=== PATIENT | female | born 1970 | race Caucasian/White ===

== ENCOUNTER 2024-07-17 20:37 | Emergency (ER) | payer OTHER, SELFPAY ==
[2024-07-17 20:40] VITALS: BP 168/94
[2024-07-17 20:56] LABS: Urine Albumin Trace (Neg - Trace); Urine Bilirubin Negative (Negative); Urine Character Clear (Clear); Urine Color Straw; Urine Glucose Negative (Negative); Urine Ketone Negative (Negative); Urine Leukocyte 2+ (Negative); Urine Nitrite Negative (Negative); Urine Occult Blood 4+ (Negative); Urine Specific Gravity 1.005 (<1.030); Urine Urobilinogen Negative (Neg - 1+); Urine pH 6.5 (5.0-9.0)
[2024-07-17 21:11] LABS: Urine Bacteria Few (Negative); Urine White Cell >100 /HPF (0-5)
[2024-07-17 23:30] VITALS: BP 134/79
--- NOTE | 2024-07-17 23:58 | ED.GENMED ---
History of Present Illness
General
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
Source: patient
Exam Limitations: none
Time Seen by Provider: 07/17/24 23:47
Nursing documentation reviewed up to this point in time: agreed with
History of Present Illness
History of Present Illness:
This is a 53-year-old woman with history of hypertension, prescribed lisinopril but has not been taking this and instead has been watching her diet and states blood pressure monitoring at home has been relatively at goal systolic 120s to 130s.
Other than this she takes no other medications on a daily basis.
She does have history of UTIs generally 3 to 4/year with last UTI perhaps 4 to 5 months ago and she notes remote history of pyelonephritis perhaps 12 to 13 years ago.
She complains of UTI symptoms that began this afternoon, have worsened tonight with urinary frequency, urgency, dysuria and noted very mild left flank ache tonight.
No history of kidney stones.
She has not had a fever nor chills. No nausea nor vomiting. No abdominal pain.
She has not been taking anything for her discomfort.
Denies risk of , she is menopausal.
Past History
Past History
ED Past Medical History: HTN and Other (UTIs)
ED Past Surgical History: None
Social History
Tobacco: Non-smoker
Personal:
Living: with family
Employment: Employed
Family History
Family History: Other (Noncontributory)
Phy Exam
Physical Exam
Physical Exam:
GENERAL: Alert , in no apparent distress. 53-year-old woman appears her stated age, bright and alert, pleasant, appears in no acute distress. Afebrile. is accompanying.
EYE: anicteric
NECK: Supple, nontender, no meningismus, no significant adenopathy.
ENT: oral mucosa is moist. No rhinorrhea.
CARDIAC: Regular rate and rhythm. no murmur.
LUNGS: Clear breath sounds bilaterally, no acute respiratory distress, no wheezes/rales/rhonchi
ABDOMEN: Soft, nondistended, without focal tenderness, bladder is not palpably distended. No r/g, minimal left CVA tenderness with percussion. Normoactive BS.
NEUROLOGICAL: Alert and oriented x3, no focal neuro deficits. Gait is hutchison and steady.
SKIN: Warm and dry, normal color, skin intact. No rash.
MUSCULOSKELETAL: No C/C/E. peripheral pulses are full and equal b/l. No palpable tenderness.
PSYCH: Normal and appropriate interaction.
Course
Orders/Labs/Results
Orders:
Orders
07/17/24 20:46
Urine Culture Reflexed from UA [Urinalysis Reflex To Culture] Urgent
Date Specimen was Collected: 07/17/24
Time Specimen was Collected: 20:42
Urine Microscopic Reflex Cult Urgent
Urine Culture Urgent
RAÚL Source: U
Specimen Description:
Date Specimen was Collected: 07/17/24
Time Specimen was Collected: 20:42
07/17/24 23:58
Amoxicillin 875 mg/Clav 125 mg [Augmentin 875 mg/125 mg] 1 tablet PO NOW STA
Phenazopyridine HCl [Pyridium] 200 mg PO NOW STA
Abnormal Lab Results
07/17/24
20:46
Ur Occult Blood Reflex 4+ A
(Negative)
Leukocyte Esterase Rfl 2+ A
(Negative)
Urine RBC 3-6 A /HPF
(0-2)
Urine WBC (Reflex) >100 A /HPF
(0-5)
Urine Bacteria (Reflex) Few A
(Negative)
Vital Signs
Initial and Last Documented VS:
Initial Vital Signs
Temp Pulse Resp BP Pulse Ox
98.5 F 99 20 168/94 96
07/17/24 20:40 07/17/24 20:40 07/17/24 20:40 07/17/24 20:40 07/17/24 20:40
Last Documented Vital Signs
Temp Pulse Resp BP Pulse Ox
98.5 F 99 20 168/94 96
07/17/24 20:40 07/17/24 20:40 07/17/24 20:40 07/17/24 20:40 07/17/24 20:40
MDM/Problems Addressed
Differential Diagnosis Includes:
Concern for UTI, concern for early pyelonephritis.
Reassuring the patient is afebrile, overall well in appearance.
No history of kidney stones. No history of chronic kidney disease. No history of immunocompromise. Reports only 1 previous episode of pyelonephritis, remote history 12 or more years ago but no history of complicated UTIs.
Urinalysis consistent with UTI showing few bacteria but greater than 100 WBCs, 3-6 RBCs.
Imaging and labs considered but overall well in appearance.
Due to concern for possible early pyelonephritis will treat with a 10-day course of Augmentin. Will add a short course of Pyridium for UTI symptoms.
Discussed importance of remaining well-hydrated on a daily basis. Patient states she has been attempting to drink more fluids this evening as evident with low specific gravity of 1.005.
Blood pressure moderately elevated initially and patient has history of hypertension, prescribed lisinopril which she has not been taking. There may be an element of whitecoat syndrome as she states her blood pressure has been better controlled
with home monitoring.
Nonetheless recommend prompt follow-up with PCP for recheck and repeat blood pressure evaluation.
Return precautions discussed.
Chronic conditions affecting care: HTN
Acute Exacerbation and/or Progression of Chronic Illness: HTN
*Pulse Oximetry
Patient hypoxic: no
*Critical Care Note
Total Time (30-74mins, 75-104mins- exclusive of procedures): Not Applicable
ED Attending Note
-
Portions of this chart may have been created with voice recognition software.� Occasional wrong word or��sound alike� substitutions may have occurred due to the inherent limitations of voice recognition software.
Discharge Plan
Departure
Patient Disposition: Home (Routine Discharge)
Date of Disposition: 07/18/24
Time of Disposition: 00:06
Patient with high blood pressure during this ER visit?: Yes
Condition: Good
Discharge Problem:
Acute urinary tract infection, Early pyelonephritis
Instructions: Urinary Tract Infection, Adult ED, BLOOD PRESSURE
Prescriptions:
New
amoxicillin-pot clavulanate 875-125 mg tablet
1 tab PO BID Qty: 20 0RF
phenazopyridine [Pyridium] 200 mg tablet
200 mg PO TID PRN (Reason: UTI symptoms) 3 Days Qty: 9 0RF
Referrals:
Jeff Saleh IV, MD [Family Provider] - Call in 1-3 days for appt
Interventions
Interventions:
*Risk Screen - Suicide Last Done: 07/17/24 20:40
*General Assessment Last Done: 07/17/24 20:40
*Neglect/Abuse Screening Last Done: 07/17/24 20:40
Discharge Date and Time
Print Language: [place]
[2024-07-18] MEDS: Pyridium 200 MG PO (00:12)
[2024-07-18] MEDS: AUGMENTIN 875 MG/125 MG 1 TABLET PO (00:12)
== END 2024-07-18 00:26 | disposition home or self-care (01) ==
LOC: EMR 20:37
PROVIDERS: Student in an Organized Health Care Education/Training Program; EMERGENCY PHYSICIAN Emergency Medicine; FAMILY PHYSICIAN Family Medicine
DX: N39.0 Urinary tract infection, site not specified (principal); N12 Tubulo-interstitial nephritis, not specified as acute or chronic; I10 Essential (primary) hypertension; Z87.440 Personal history of urinary (tract) infections
CPT/HCPCS: 99283; 81003; 81015; 87086; 87088; 87186